=== PATIENT | female | born 1950 | race Caucasian/White ===

== ENCOUNTER → 2018-07-15 | Outpatient (CLI) | payer OTHER ==
[~2018-07-15] MED LIST: ATEN100T PO; FLUT12HF2 INH; FURO40TA6 PO; MONT10TA9 PO; PANT40TA5 PO; VALS80TA3 PO
== END | disposition home or self-care (01) ==
LOC: CFH 09:18
PROVIDERS: ATTEND Nurse Practitioner Family
DX: Z12.31 Encounter for screening mammogram for malignant neoplasm of breast (principal); Z13.820 Encounter for screening for osteoporosis; N95.1 Menopausal and female climacteric states; R10.9 Unspecified abdominal pain
CPT/HCPCS: 76700; 77063; 77067

== ENCOUNTER 2019-03-16 09:11 | Emergency (ER) | payer OTHER ==
[~2019-03-16] VITALS: Ht 177.8 cm; Wt 74.7 kg
[2019-03-16 09:31] VITALS: BP 118/73
--- NOTE | 2019-03-16 11:36 | NUR ---
Patient given discharge instructions and they have confirmed that they understand the instructions. Patient ambulatory with steady gait.
== END 2019-03-16 11:51 | disposition home or self-care (01) ==
LOC: ED 11:41
DX: S40.011A Contusion of right shoulder, initial encounter (principal); M54.32 Sciatica, left side; M25.552 Pain in left hip; X58.XXXA Exposure to other specified factors, initial encounter; Y93.89 Activity, other specified; Y92.89 Other specified places as the place of occurrence of the external cause; Y99.8 Other external cause status
CPT/HCPCS: 99284